=== PATIENT | female | born 1970 | race Caucasian/White ===

== ENCOUNTER 2022-07-03 10:55 | Emergency (ER) | payer SELFPAY ==
[2022-07-03] MEDS ORDERED: Sodium Chloride 0.9% 10 ML Syringe FLUSH PRN (11:14)
[2022-07-03] MEDS ORDERED: Meclizine 25 MG Tab PO ONE (11:14)
[2022-07-03] MEDS ORDERED: Sodium Chloride 0.9% 2.5 ML Syringe FLUSH PRN (11:14)
[2022-07-03 11:48] LABS: BASOPHILS PERCENT AUTO 0.1 % (0.0-1.5); EOSINOPHILS ABSOLUTE AUTO 0.1 K/uL (0.0-0.7); EOSINOPHILS PERCENT AUTO 0.7 % (0.0-7.0); HEMATOCRIT 41.2 % (36.0-46.0); HEMOGLOBIN 13.5 g/dL (12.0-16.0); LYMPHOCYTES ABSOLUTE AUTO 2.4 K/uL (0.6-2.4); LYMPHOCYTES PERCENT AUTO 29.1 % (16.0-40.0); MEAN CORPUSCULAR HEMOGLOBIN 33.1 pg (27.0-32.0); MEAN CORPUSCULAR HGB CONC 32.8 g/dL (31.0-37.0); MONOCYTES ABSOLUTE AUTO 0.4 K/uL (0.0-0.8); MONOCYTES PERCENT AUTO 4.8 % (0.0-15.0); NEUTROPHILS ABSOLUTE AUTO 5.4 K/uL (1.4-5.7); NEUTROPHILS PERCENT AUTO 65.3 % (48.0-80.0); PLATELET COUNT,PLT 264 K/uL (150-400); RED BLOOD CELL COUNT 4.08 M/uL (4.30-5.90); WHITE BLOOD CELL COUNT,WBC 8.31 K/uL (4.0-11.0)
[2022-07-03 12:09] LABS: CORONAVIRUS COVID-19 NAA NEGATIVE (NEGATIVE); INFLUENZA A NAA NEGATIVE (NEGATIVE); INFLUENZA B NAA NEGATIVE (NEGATIVE)
[2022-07-03 12:12] LABS: A/G RATIO 0.9 (0.9-1.6); ALBUMIN 3.2 g/dL (3.4-5.0); BILIRUBIN TOTAL 0.2 mg/dL (0.2-1.0); CALCIUM 9.4 mg/dL (8.5-10.1); CARBON DIOXIDE,CO2 27.2 mmol/L (21.0-32.0); CREATININE 0.9 mg/dL (0.6-1.0); EST CRCL DRUG DOSING (CG) 69.23 mL/min; MAGNESIUM 2.2 mg/dL (1.8-2.4); POTASSIUM,K 4.3 mmol/L (3.5-5.1); PROTEIN TOTAL,TP 6.9 g/dL (6.4-8.2)
== END 2022-07-03 12:57 | disposition home or self-care (01) ==
LOC: MW.ED 10:55
DX: I10 Essential (primary) hypertension (principal); Z20.822 Contact with and (suspected) exposure to COVID-19
CPT/HCPCS: 0240U; 36415; 80053; 82947; 83735; 84484; 85025; 93005; 99285; A9270; J3490; 93010; 99283